=== PATIENT | female | born 1955 | race Two or more races ===

== ENCOUNTER → 2022-06-13 | Outpatient (CLI) | payer OTHER | LOC: MAMMO 14:59 | PROVIDERS: ATTEND Internal Medicine | DX: Z12.31 Encounter for screening mammogram for malignant neoplasm of breast (principal); M81.8 Other osteoporosis without current pathological fracture; M75.01 Adhesive capsulitis of right shoulder; M17.11 Unilateral primary osteoarthritis, right knee | CPT/HCPCS: 77067; 77080 ==

== ENCOUNTER → 2024-07-04 | Outpatient (REF) | payer OTHER | LOC: MAMMO 14:18 | PROVIDERS: ATTEND Internal Medicine | DX: Z12.31 Encounter for screening mammogram for malignant neoplasm of breast (principal); M75.01 Adhesive capsulitis of right shoulder; M17.11 Unilateral primary osteoarthritis, right knee | CPT/HCPCS: 77067 ==

== ENCOUNTER → 2024-07-11 | Outpatient (REF) | payer OTHER | LOC: DX 15:56 | PROVIDERS: ATTEND Internal Medicine | DX: M81.0 Age-related osteoporosis without current pathological fracture (principal) | CPT/HCPCS: 77080 ==